=== PATIENT | male | born 1955 | race Caucasian/White ===

== ENCOUNTER 2020-09-02 17:58 | Emergency (ER) | payer MEDICARE, OTHER ==
[2020-09-02] MEDS ORDERED: methylPREDNISolone Sod Succ 125 MG in Sodium Chloride 0.9% 100 ML IV ONE (18:30)
--- NOTE | 2020-09-02 18:35 | EDM.PDOC ---
ED HPI GENERAL MEDICAL PROBLEM - General Chief Complaint: Respiratory Problem Stated Complaint: COPD Time Seen by Provider: 09/02/20 18:15 Source of Information: Reports: Patient History Limitations: Reports: No Limitations - History of Present Illness INITIAL COMMENTS - FREE TEXT/NARRATIVE: c/o sob x 12h h/o COPD, uses oxygen at night, used some during the day today as well no longer smokes has had COVID vax x 2, not had COVID illness has had cardiac stents x 5 and angioplasty x 2, no CP today has PVD with stents x 2 and bypass of his LE PSH: cardiac and LE stents, hernia surgery x 5 SH: had lived in [facility] 2y ago where his children lived, has since lived in [place] and now locally x 2m - Related Data Allergies Allergy/AdvReac Type Severity Reaction Status Date / Time No Known Allergies Allergy Verified 09/02/20 18:20 Home Meds: Home Meds Albuterol Sulfate [Albuterol Sulfate Hfa] 2 inh INH ASDIRECTED 09/02/20 [History] Albuterol/Ipratropium [DuoNeb 3.0-0.5 MG/3 ML] 3 ml INH ASDIRECTED 09/02/20 [History] Aspirin 81 mg PO DAILY 09/02/20 [History] Azithromycin 250 mg PO DAILY #4 tablet 09/02/20 [Rx] Citalopram [Citalopram HBr] 40 mg PO DAILY 09/02/20 [History] Clopidogrel [Plavix] 75 mg PO DAILY 09/02/20 [History] Famotidine 20 mg PO BID 09/02/20 [History] Fluticasone/Umeclidin/Vilanter [Trelegy Ellipta 100-62.5-25] 1 puff INH DAILY 09/02/20 [History] Gabapentin [Neurontin] 300 mg PO TID 09/02/20 [History] LORazepam [Lorazepam] 0.5 mg PO ASDIRECTED PRN 09/02/20 [History] Liraglutide [Victoza] 1.2 mg SUBCUT DAILY 09/02/20 [History] Losartan [Cozaar] 25 mg PO DAILY 09/02/20 [History] Montelukast [Singulair] 10 mg PO BEDTIME 09/02/20 [History] Tamsulosin [Flomax] 0.4 mg PO BEDTIME 09/02/20 [History] atorvaSTATin [Lipitor] 40 mg PO DAILY 09/02/20 [History] busPIRone [Buspar] 5 mg PO BID 09/02/20 [History] carvediloL [Carvedilol] 12.5 mg PO DAILY 09/02/20 [History] metFORMIN HCl [Metformin HCl ER] 750 mg PO BID 09/02/20 [History] predniSONE [Prednisone] 20 mg PO ASDIRECTED #8 tablet 09/02/20 [Rx] tiZANidine 2 mg PO ASDIRECTED PRN 09/02/20 [History] Past Medical History Cardiovascular History: Reports: CAD, Heart Failure, Hypertension Respiratory History: Reports: COPD, SOB Endocrine/Metabolic History: Reports: Diabetes, Type I - Past Surgical History Cardiovascular Surgical History: Reports: Carotid Stents Social & Family History - Family History Family Medical History: No Pertinent Family History ED ROS GENERAL - Review of Systems Review Of Systems: See Below Constitutional: Reports: No Symptoms HEENT: Reports: No Symptoms Respiratory: Reports: Shortness of Breath Cardiovascular: Reports: No Symptoms. Denies: Chest Pain Endocrine: Reports: No Symptoms GI/Abdominal: Reports: No Symptoms : Reports: No Symptoms Musculoskeletal: Reports: No Symptoms Skin: Reports: No Symptoms Neurological: Reports: No Symptoms Psychiatric: Reports: No Symptoms Hematologic/Lymphatic: Reports: No Symptoms Immunologic: Reports: No Symptoms ED EXAM, GENERAL - Physical Exam Exam: See Below Exam Limited By: No Limitations General Appearance: Alert, WD/WN, No Apparent Distress Nose: Normal Inspection Throat/Mouth: Normal Inspection, Normal Teeth, No Airway Compromise Head: Atraumatic, Normocephalic Neck: Normal Inspection, Supple, Non-Tender. No: Lymphadenopathy (R), Lymphadenopathy (L) Respiratory/Chest: Other (poor air exchange, inc'd PA diameter, no audible wheeze, slight inc'd exp phase, using accessory muscles, nonlabored, no purse lips, no retractions) Cardiovascular: Regular Rate, Rhythm, No Edema, Other (2/6 JAYSHREE at LSB) GI/Abdominal: Soft, Non-Tender, No Distention Back Exam: Normal Inspection, Full Range of Motion. No: CVA Tenderness (R), CVA Tenderness (L) Extremities: Normal Inspection, Normal Range of Motion, Non-Tender, No Pedal Edema Neurological: Alert, Oriented, CN II-XII Intact, Normal Cognition, No Motor/Sensory Deficits Psychiatric: Normal Affect, Normal Mood Skin Exam: Warm, Dry, Intact, Normal Color, No Rash Lymphatic: No Adenopathy #1 Interpretation EKG Date: 09/02/20 Time: 19:39 Rhythm: NSR Rate (Beats/Min): 65 EKG Interpretation Comments: old IWMI, PRWP c/w old AWMI, no acute ST changes, no comparison, no acute ischemia Course - Vital Signs Last Recorded V/S: Last Vital Signs Temp 36.8 C 09/02/20 18:15 Pulse 66 09/02/20 18:15 Resp 12 09/02/20 18:15 BP 161/81 H 09/02/20 18:15 Pulse Ox 95 09/02/20 18:15 - Orders/Labs/Meds Orders: Active Orders 24 hr Category Date Time Status EKG Documentation Completion [RC] ASDIRECTED Care 09/02/20 18:29 Ordered RT Aerosol Therapy [RC] ASDIRECTED Care 09/02/20 18:41 Ordered URINALYSIS W/MICROSCOPIC [UA W/MICROSCOPIC] [URIN] Stat Lab 09/02/20 18:28 Ordered Azithromycin [Zithromax] Med 09/02/20 20:01 Once 500 mg PO ONETIME ONE EKG 12 Lead [EK] Routine Ther 09/02/20 18:28 Ordered Labs: Laboratory Tests 09/02/20 09/02/20 09/02/20 Range/Units 18:35 18:35 18:35 WBC 5.6 (3.2-10.1) x10-3/uL RBC 4.32 (3.90-5.90) x10(6)uL Hgb 12.6 L (12.9-17.7) g/dL Hct 39.0 (38.3-50.1) % MCV 90.3 (80.8-98.7) fL MCH 29.2 (27.0-33.3) pg MCHC 32.4 (28.7-35.3) g/dL RDW 15.9 H (12.4-15.0) % Plt Count 161 (117-477) x10(3)uL MPV 7.0 (6.7-11.0) fL Neut % (Auto) 65.7 (40.3-71.8) % Lymph % (Auto) 20.1 (15.8-45.3) % Garfield % (Auto) 8.8 (5.5-15.2) % Eos % (Auto) 4.5 (0.1-6.8) % Baso % (Auto) 0.9 (0.3-3.8) % Neut # (Auto) 3.7 (1.7-6.9) x10-3/uL Lymph # (Auto) 1.1 (0.5-4.5) x10-3/uL Garfield # (Auto) 0.5 (0.0-1.2) x10-3/uL Eos # (Auto) 0.3 (0.0-0.6) x10-3/uL Baso # (Auto) 0.0 (0.0-0.3) x10-3/uL POC VBG pH (7.32-7.43) pH Units POC VBG pCO2 (41-51) mmHg POC VBG HCO3 (21-29) mmol/L VBG Base Excess (-2-3) mmol/L O2 Delivery Device Sodium 146 H (135-145) mmol/L Potassium 4.6 (3.5-5.3) mmol/L Chloride 106 (100-110) mmol/L Carbon Dioxide 33 H (21-32) mmol/L BUN 15 (7-18) mg/dL Creatinine 1.1 (0.70-1.30) mg/dL Est Cr Clr Drug Dosing TNP Estimated GFR (MDRD) > 60 (>60) BUN/Creatinine Ratio 13.6 (9-20) Glucose 106 (80-116) mg/dL Calcium 9.1 (8.6-10.2) mg/dL Total Bilirubin 0.3 (0.1-1.3) mg/dL AST 19 (5-25) IU/L ALT 31 (12-36) U/L Alkaline Phosphatase 64 (56-112) IU/L Troponin I 5.3 (4.0-60.3) pg/mL C-Reactive Protein 0.2 L (0.5-0.9) mg/dL Total Protein 6.5 (6.0-8.0) g/dL Albumin 3.5 (3.2-4.6) g/dL Globulin 3.0 g/dL Albumin/Globulin Ratio 1.2 // Range/Units 18:35 WBC (3.2-10.1) x10-3/uL RBC (3.90-5.90) x10(6)uL Hgb (12.9-17.7) g/dL Hct (38.3-50.1) % MCV (80.8-98.7) fL MCH (27.0-33.3) pg MCHC (28.7-35.3) g/dL RDW (12.4-15.0) % Plt Count (117-477) x10(3)uL MPV (6.7-11.0) fL Neut % (Auto) (40.3-71.8) % Lymph % (Auto) (15.8-45.3) % Garfield % (Auto) (5.5-15.2) % Eos % (Auto) (0.1-6.8) % Baso % (Auto) (0.3-3.8) % Neut # (Auto) (1.7-6.9) x10-3/uL Lymph # (Auto) (0.5-4.5) x10-3/uL Garfield # (Auto) (0.0-1.2) x10-3/uL Eos # (Auto) (0.0-0.6) x10-3/uL Baso # (Auto) (0.0-0.3) x10-3/uL POC VBG pH 7.41 (7.32-7.43) pH Units POC VBG pCO2 47 (41-51) mmHg POC VBG HCO3 30 H (21-29) mmol/L VBG Base Excess 4 H (-2-3) mmol/L O2 Delivery Device Room air Sodium (135-145) mmol/L Potassium (3.5-5.3) mmol/L Chloride (100-110) mmol/L Carbon Dioxide (21-32) mmol/L BUN (7-18) mg/dL Creatinine (0.70-1.30) mg/dL Est Cr Clr Drug Dosing Estimated GFR (MDRD) (>60) BUN/Creatinine Ratio (9-20) Glucose (80-116) mg/dL Calcium (8.6-10.2) mg/dL Total Bilirubin (0.1-1.3) mg/dL AST (5-25) IU/L ALT (12-36) U/L Alkaline Phosphatase (56-112) IU/L Troponin I (4.0-60.3) pg/mL C-Reactive Protein (0.5-0.9) mg/dL Total Protein (6.0-8.0) g/dL Albumin (3.2-4.6) g/dL Globulin g/dL Albumin/Globulin Ratio Meds: Medications Discontinued Medications Generic Name Dose Route Start Last Admin Trade Name Freq PRN Reason Stop Dose Admin Albuterol/Ipratropium 3 ml 09/02/20 18:41 09/02/20 19:20 Albuterol/Ipratropium 3.0-0.5 Mg/3 Ml Neb Soln NEB 09/02/20 18:42 3 ml ONETIME ONE Administration Methylprednisolone Sodium 100 mls @ 100 mls/hr 09/02/20 18:30 09/02/20 19:21 Succinate 125 mg/ Sodium IV 09/02/20 19:29 Not Given Chloride ONETIME ONE Methylprednisolone Sodium Succinate 125 mg 09/02/20 19:18 09/02/20 19:20 Methylprednisolone Sodium Succinate 125 Mg/2 Ml Sdv IVPUSH 09/02/20 19:19 125 mg ONETIME ONE Administration Methylprednisolone Sodium Succinate Confirm 09/02/20 19:16 09/02/20 19:23 Methylprednisolone Sodium Succinate 125 Mg/2 Ml Sdv Administered 09/02/20 19:17 Not Given Dose 125 mg .ROUTE .STK-MED ONE Departure - Departure Time of Disposition: 20:01 Disposition: Home, Self-Care 01 Condition: Good Clinical Impression: COPD exacerbation - Discharge Information *PRESCRIPTION DRUG MONITORING PROGRAM REVIEWED*: Not Applicable *COPY OF PRESCRIPTION DRUG MONITORING REPORT IN PATIENT JUAN CARLOS: Not Applicable Prescriptions: Azithromycin 250 mg PO DAILY #4 tablet predniSONE [Prednisone] 20 mg PO ASDIRECTED #8 tablet Instructions: Chronic Obstructive Pulmonary Disease Forms: ED Department Discharge Additional Instructions: Continue Duoneb nebulizers and albuterol inhaler. You should be taking an additional maintenance inhaler, which you will want to discuss with Dr Krueger. Take prednisone 20 mg 2 tabs tomorrow, then 1 tab daily for 6 more days. Take azithromycin 250 mg 1 tab daily for 4 days. Continue your oxygen as needed. Return to Emergency Department if you are feeling worse. Sepsis Event Note (ED) - Focused Exam Vital Signs: Vital Signs Temp Pulse Resp BP Pulse Ox 09/02/20 18:15 36.8 C 66 12 161/81 H 95 - My Orders Last 24 Hours: My Active Orders 09/02/20 18:28 URINALYSIS W/MICROSCOPIC [UA W/MICROSCOPIC] [URIN] Stat EKG 12 Lead [EK] Routine 09/02/20 18:29 EKG Documentation Completion [RC] ASDIRECTED 09/02/20 18:41 RT Aerosol Therapy [RC] ASDIRECTED 09/02/20 20:01 Azithromycin [Zithromax] 500 mg PO ONETIME ONE - Assessment/Plan Last 24 Hours: My Active Orders 09/02/20 18:28 URINALYSIS W/MICROSCOPIC [UA W/MICROSCOPIC] [URIN] Stat EKG 12 Lead [EK] Routine 09/02/20 18:29 EKG Documentation Completion [RC] ASDIRECTED 09/02/20 18:41 RT Aerosol Therapy [RC] ASDIRECTED 09/02/20 20:01 Azithromycin [Zithromax] 500 mg PO ONETIME ONE
[2020-09-02] MEDS ORDERED: Albuterol/Ipratropium 3.0-0.5 MG/3 ML Neb Soln NEB ONE (18:41)
[2020-09-02 19:08] LABS: BASE EXCESS VENOUS,POC 4 mmol/L (-2-3); HCO3 VENOUS,POC 30 mmol/L (21-29); PCO2 VENOUS,POC 47 mmHg (41-51); PH VENOUS,POC 7.41 pH Units (7.32-7.43)
[2020-09-02] MEDS ORDERED: methylPREDNISolone Sodium Succinate 125 MG/2 ML SDV ONE (19:16)
[2020-09-02] MEDS ORDERED: methylPREDNISolone Sodium Succinate 125 MG/2 ML SDV IVPUSH ONE (19:18)
--- NOTE | 2020-09-02 19:45 | CR ---
INDICATION: Short of breath. CHEST, TWO VIEWS [id number]: Two PA views and a lateral view of the chest were obtained 09/02/20-no comparison. Prominent AP diameter, flattened diaphragm leaves, interdigitation of the right hemidiaphragm leaf and hyperaeration are compatible with COPD. Calcified anterior longitudinal ligament suggests early or mild DISH. Left ventricle appears to be somewhat enlarged. The upper and mid lung field pulmonary vasculature appears slightly prominent, raising question of mild degree of pulmonary vascular congestion-CHF possible. This should be correlated clinically. Calcifications suggested in the arch of the aorta. Overlying EKG leads are noted. A definite active infiltrate or effusion was not identified. IMPRESSION: 1. No definite acute process. It is difficult to exclude a mild or early CHF. 2. ASHD with LVE. 3. COPD. 4. DISH. MTDD
[2020-09-02] MEDS ORDERED: Azithromycin 500 MG Tab PO ONE (20:01)
== END 2020-09-02 20:45 | disposition home or self-care (01) ==
LOC: FB.ED 17:58
DX: J44.1 Chronic obstructive pulmonary disease with (acute) exacerbation (principal); I11.0 Hypertensive heart disease with heart failure; I50.9 Heart failure, unspecified; I25.10 Atherosclerotic heart disease of native coronary artery without angina pectoris; E10.9 Type 1 diabetes mellitus without complications; Z79.899 Other long term (current) drug therapy
CPT/HCPCS: 36415; 71046; 80053; 84484; 85025; 86140; 93005; 96374; 99285; A9270; J2930; J7620-GY